=== PATIENT | female | born 1975 | race Two or more races ===

== ENCOUNTER → 2016-07-30 | Outpatient (CLI) | payer OTHER | LOC: WI 10:07 | PROVIDERS: ATTEND Family Medicine | DX: N64.4 Mastodynia (principal) | CPT/HCPCS: 76641; G0204; 77066 ==

== ENCOUNTER 2016-08-06 08:23 | Outpatient (CLI) | payer OTHER ==
[~2016-08-06 08:23] MED LIST: ACETAMINOPHEN 325 MG TABLET PO PRN; DIPHENHYDRAMINE HCL 50 MG/ML VIAL IV PRN; IRON DEXTRAN COMPLEX 25 MG in SYRINGE, DISPOSABLE, 1 EACH IV PRN; IRON DEXTRAN COMPLEX 775 MG in NORMAL SALINE 500 ML IV PRN; NORMAL SALINE 250 ML IV PRN
[2016-08-06 09:01] VITALS: BP 112/54
== END 2016-08-06 13:01 | disposition home or self-care (01) ==
LOC: 5TH 08:23 → II 08:23
PROVIDERS: ATTEND Specialist
PROC: 3E033GC Introduction of Other Therapeutic Substance into Peripheral Vein, Percutaneous Approach (ICD-10-PCS; principal; 2016-08-06)
PROC: 3E033GC Introduction of Other Therapeutic Substance into Peripheral Vein, Percutaneous Approach (ICD-10-PCS; 2016-08-06)
PROC: 3E033GC Introduction of Other Therapeutic Substance into Peripheral Vein, Percutaneous Approach (ICD-10-PCS; 2016-08-06)
PROC: 3E033GC Introduction of Other Therapeutic Substance into Peripheral Vein, Percutaneous Approach (ICD-10-PCS; 2016-08-06)
DX: D50.0 Iron deficiency anemia secondary to blood loss (chronic) (principal)
CPT/HCPCS: 96365; 96366; 96375; J1200; J1750; J7040; J3490; 96367

== ENCOUNTER 2017-07-23 13:08 | Outpatient (CLI) | payer OTHER ==
[~2017-07-23 13:08] MED LIST changes: +FERRIC CARBOXYMALTOSE 750 MG in NORMAL SALINE 250 ML IV PRN; +IRON DEXTRAN COMPLEX 25 MG in NORMAL SALINE 100 ML IV PRN
[2017-07-23 13:22] VITALS: BP 116/57
== END 2017-07-23 14:31 | disposition home or self-care (01) ==
LOC: II 13:08 → 5TH 13:13 → II 14:31
PROVIDERS: ATTEND Internal Medicine Hematology & Oncology
PROC: 3E033GC Introduction of Other Therapeutic Substance into Peripheral Vein, Percutaneous Approach (ICD-10-PCS; principal; 2017-07-23)
DX: D50.0 Iron deficiency anemia secondary to blood loss (chronic) (principal); K90.9 Intestinal malabsorption, unspecified
CPT/HCPCS: 96367; J7050; J1439; 96365; J1750; J3490; J7040

== ENCOUNTER 2017-07-30 13:10 | Outpatient (CLI) | payer OTHER ==
[~2017-07-30 13:10] MED LIST changes: -ACETAMINOPHEN 325 MG TABLET PO PRN; -DIPHENHYDRAMINE HCL 50 MG/ML VIAL IV PRN; -IRON DEXTRAN COMPLEX 25 MG in NORMAL SALINE 100 ML IV PRN; -IRON DEXTRAN COMPLEX 25 MG in SYRINGE, DISPOSABLE, 1 EACH IV PRN; -IRON DEXTRAN COMPLEX 775 MG in NORMAL SALINE 500 ML IV PRN
[2017-07-30 13:47] VITALS: BP 122/68
== END 2017-07-30 14:45 | disposition home or self-care (01) ==
LOC: II 13:10 → 5TH 13:32 → II 14:45
PROVIDERS: ATTEND Internal Medicine Hematology & Oncology
PROC: 3E033GC Introduction of Other Therapeutic Substance into Peripheral Vein, Percutaneous Approach (ICD-10-PCS; principal; 2017-07-30)
DX: D50.0 Iron deficiency anemia secondary to blood loss (chronic) (principal); K90.9 Intestinal malabsorption, unspecified
CPT/HCPCS: 96367; J7050; J1439; 96365

== ENCOUNTER → 2017-08-25 | Outpatient (CLI) | payer OTHER ==
--- NOTE | 2017-08-25 14:49 | WOMENS IMAGING REPORT ---
EXAM DESCRIPTION: 3D SCREENING MAMMO BILAT COMPLETED DATE/TIME: 08/25/2017 12:55 pm REASON FOR STUDY: ROUTINE SCREENING;Z12.31 Z12.31 ENCNTR SCREEN MAMMOGRAM FOR MALIGNANT NEOPLASM OF BRANDI COMPARISON: 2017 TECHNIQUE: Standard craniocaudal and mediolateral oblique views of each breast recorded using digita l acquisition and breast tomosynthesis. LIMITATIONS: None. FINDINGS: Findings present which are benign by mammographic criteria. No suspicious masses, calcifi cations or architectural distortion. Pertinent benign findings: Breast reduction. Read with the assistance of CAD. .[employer] - R2 Cenova Version 1.3 .[facility] - R2 Cenova Version 1.3 .[facility] - R2 Cenova Version 2.4 .[facility] [place] - R2 Cenova Version 2.4 .[facility] - R2 D[employer] Medical Equipment Technician Version 9.2 Benign mammographic findings may include one or more of the following: Smooth masses, popcorn/rim/co arse calcifications, asymmetries, post-procedure changes, and lesions with long-standing stability. IMPRESSION: BENIGN MAMMOGRAPHIC FINDINGS. BIRADS 2 BREAST DENSITY: b. There are scattered areas of fibroglandular density. BIRAD: 2 BENIGN FINDING(S) RECOMMENDATION: RECOMMENDATION: ROUTINE SCREENING COMMENT: The patient has been notified of the results by letter per SA requirements. Additional no tification policies are in place for contacting patient with suspicious or incomplete findings. Quality ID #225: The [employer] recommends an annual screening mammogram for women aged 40 years or over. This facility utilizes a reminder system to ensure that all patients receive reminder letters, and/or direct phone calls for appointments. This includes reminders for routine scr eening mammograms, diagnostic mammograms, or other Breast Imaging Interventions when appropriate. Th is patient will be placed in the appropriate reminder system. The [employer] (ACR) has developed recommendations for screening MRI of the breast s in certain patient populations, to be used in conjunction with mammography. Breast MRI surveillanc e may be appropriate for women with more than 20% lifetime risk of developing breast cancer as deter mined by genetic testing, significant family history of the disease, or history of mantle radiation f or Hodgkins Disease. ACR Practice Guidelines 2008. DBT Technology DBT is a type of tomographic mammography. With conventional mammography, overlapping breast tissue ma y make lesions difficult to detect, even with good compression. DBT uses an x-ray tube that rotates a round the breast, taking images at different angles. These images are then combined to create thin sl ices of the breast that the radiologist can view as a 3D reconstruction. The Hologic unit can perform full-field digital mammograms (2D imaging); or DBT (3D imaging); or both, in a combination mode that quickly performs both the mammogram and the tomosynthesis scan while the breast is still compressed. PQRS 6045F: Fluoroscopic imaging is not utilized for breast tomosynthesis. TECHNICAL DOCUMENTATION: FINDING NUMBER: (1) ASSESSMENT: (1) JOB ID: [id number] [employer]- All Rights Reserved Reading location - IP/workstation name: [email or web address] [email or web address]
== END ==
LOC: WI 12:33
PROVIDERS: ATTEND Physician Assistant
DX: Z12.31 Encounter for screening mammogram for malignant neoplasm of breast (principal)
CPT/HCPCS: 77063; 77067

== ENCOUNTER 2018-02-11 10:27 | Outpatient (CLI) | payer OTHER ==
[2018-02-11 11:04] VITALS: BP 113/63
== END 2018-02-11 11:34 | disposition home or self-care (01) ==
LOC: II 10:27 → 5TH 10:28 → II 11:34
PROVIDERS: ATTEND Internal Medicine Hematology & Oncology
PROC: 3E033GC Introduction of Other Therapeutic Substance into Peripheral Vein, Percutaneous Approach (ICD-10-PCS; principal; 2018-02-11)
DX: D50.0 Iron deficiency anemia secondary to blood loss (chronic) (principal); K90.9 Intestinal malabsorption, unspecified
CPT/HCPCS: 96365; J7050; J1439; 96367

== ENCOUNTER 2018-02-18 10:37 | Outpatient (CLI) | payer OTHER ==
[2018-02-18 11:22] VITALS: BP 112/77
== END 2018-02-18 11:53 | disposition home or self-care (01) ==
LOC: II 10:37 → 5TH 10:40 → II 11:53
PROVIDERS: ATTEND Internal Medicine Hematology & Oncology
PROC: 3E033GC Introduction of Other Therapeutic Substance into Peripheral Vein, Percutaneous Approach (ICD-10-PCS; principal; 2018-02-18)
DX: D50.0 Iron deficiency anemia secondary to blood loss (chronic) (principal); K90.9 Intestinal malabsorption, unspecified
CPT/HCPCS: 96367; J7050; J1439; 96365

== ENCOUNTER → 2019-04-05 | Outpatient (CLI) | payer OTHER ==
--- NOTE | 2019-04-06 18:03 | WOMENS IMAGING REPORT ---
EXAM DESCRIPTION: BILAT SCREENING MAMMO W/CAD COMPLETED DATE/TIME: 04/05/2019 3:37 pm REASON FOR STUDY: Z12.31 ENCOUNTER FOR SCREENING MAMMOGRAM FOR MALIGNANT NEOPLASM OF BREAST Z12.31 ENCNTR SCREEN MAMMOGRAM FOR MALIGNANT NEOPLASM OF BRANDI COMPARISON: 2017, 2016 EXAM PARAMETERS: Standard craniocaudal and mediolateral oblique views of each breast recorded using digital acquisition. Read with the assistance of CAD. [facility] - Neu[employer] Server Version 9.2 LIMITATIONS: None. FINDINGS: Findings present which are benign by mammographic criteria. No suspicious masses, calcifi cations or architectural distortion. Pertinent benign findings: Postsurgical changes of bilateral breast reduction. Benign mammographic findings may include one or more of the following: Smooth masses, popcorn/rim/co arse calcifications, asymmetries, post-procedure changes, and lesions with long-standing stability. IMPRESSION: BENIGN MAMMOGRAPHIC FINDINGS. BIRADS 2 BREAST DENSITY: c. The breasts are heterogeneously dense, which may obscure small masses. BIRAD: ASSESSMENT: 2 BENIGN FINDING(S) RECOMMENDATION: ROUTINE SCREENING Please continue yearly bilateral screening mammography/tomosynthesis in April 2020 COMMENT: The patient has been notified of the results by letter per MQSA requirements. Additional no tification policies are in place for contacting patient with suspicious or incomplete findings. Quality ID #225: The [employer] recommends an annual screening mammogram for women aged 40 years or over. This facility utilizes a reminder system to ensure that all patients receive reminder letters, and/or direct phone calls for appointments. This includes reminders for routine scr eening mammograms, diagnostic mammograms, or other Breast Imaging Interventions when appropriate. Th is patient will be placed in the appropriate reminder system. TECHNICAL DOCUMENTATION: FINDING NUMBER: (1) ASSESSMENT: (1) JOB ID: [id number] [employer]- All Rights Reserved Reading location - IP/workstation name: [email or web address]
== END ==
LOC: WI 14:38
PROVIDERS: ATTEND Obstetrics & Gynecology
DX: Z12.31 Encounter for screening mammogram for malignant neoplasm of breast (principal)
CPT/HCPCS: 77067

== ENCOUNTER 2019-04-21 13:01 | Outpatient (CLI) | payer OTHER ==
[~2019-04-21 13:01] MED LIST changes: -FERRIC CARBOXYMALTOSE 750 MG in NORMAL SALINE 250 ML IV PRN; +FERUMOXYTOL (NON-ESRD) 510 MG/NS 100 ML IV PRN
[2019-04-21 13:34] VITALS: BP 110/59
== END 2019-04-21 14:10 | disposition home or self-care (01) ==
LOC: II 13:01 → 5TH 13:29 → II 14:10
PROVIDERS: ATTEND Internal Medicine Hematology & Oncology
DX: D50.9 Iron deficiency anemia, unspecified (principal); K90.9 Intestinal malabsorption, unspecified
CPT/HCPCS: 96365; Q0138; J7050

== ENCOUNTER 2019-05-06 10:31 | Outpatient (CLI) | payer OTHER ==
[2019-05-06] MEDS ORDERED: NORMAL SALINE 250 ML IV PRN (10:35)
[2019-05-06] MEDS ORDERED: FERUMOXYTOL (NON-ESRD) 510 MG/NS 100 ML IV PRN ×2 (10:36)
[2019-05-06 10:39] VITALS: BP 129/74
== END 2019-05-06 11:45 | disposition home or self-care (01) ==
LOC: 5TH 10:31 → II 10:31
PROVIDERS: ATTEND Internal Medicine
DX: D50.9 Iron deficiency anemia, unspecified (principal); K90.9 Intestinal malabsorption, unspecified
CPT/HCPCS: 96365; Q0138; J7050

== ENCOUNTER 2019-07-14 08:26 | Day surgery (SDC) | payer OTHER ==
[2019-07-05 09:48] LABS: HEMATOCRIT 31.1 % (36.0-47.0); HEMOGLOBIN 10.4 g/dL (12.0-15.5); MEAN CORPUSCULAR HEMOGLOBIN 24.9 pg (27.0-33.4); MEAN CORPUSCULAR HGB CONC 33.3 g/dL (32.0-36.0); MEAN CORPUSCULAR VOLUME 75 fl (80-97); PLATELET COUNT 267 10^3/uL (150-450); RED BLOOD COUNT 4.17 10^6/uL (3.72-5.28); RED CELL DISTRIBUTION WIDTH 19.2 % (11.5-14.0); WHITE BLOOD COUNT 6.7 10^3/uL (4.0-10.5)
[2019-07-05 09:52] LABS: APPEARANCE,URINE SLIGHTLY-CLOUDY; BILIRUBIN,URINE NEGATIVE (NEGATIVE); COLOR,URINE YELLOW; GLUCOSE, URINE NEGATIVE (NEGATIVE); KETONES,URINE NEGATIVE (NEGATIVE); LEUKOCYTE ESTERASE,URINE SMALL (NEGATIVE); NITRITE,URINE NEGATIVE (NEGATIVE); PROTEIN,URINE NEGATIVE (NEGATIVE); URINE SPECIFIC GRAVITY 1.027; UROBILINOGEN,URINE NEGATIVE mg/dL (<2.0)
[2019-07-05 10:33] LABS: ALBUMIN 4.4 g/dL (3.5-5.0); ALKALINE PHOSPHATASE 56 U/L (38-126); ANION GAP 14 (5-19); ASPARTATE AMINO TRANSFERASE 29 U/L (14-36); BILIRUBIN,DIRECT 0.3 mg/dL (0.0-0.4); BILIRUBIN,TOTAL 0.7 mg/dL (0.2-1.3); BLOOD UREA NITROGEN 17 mg/dL (7-20); CALCIUM 8.9 mg/dL (8.4-10.2); CARBON DIOXIDE 22 mmol/L (22-30); CHLORIDE 105 mmol/L (98-107); GLUCOSE 115 mg/dL (75-110); POTASSIUM 4.6 mmol/L (3.6-5.0); TOTAL PROTEIN 7.8 g/dL (6.3-8.2)
--- NOTE | 2019-07-05 12:11 | RADIOLOGY REPORT (SQ) ---
EXAM DESCRIPTION: CHEST PA/LATERAL COMPLETED DATE/TIME: 07/05/2019 9:59 am REASON FOR STUDY: PRE-OP N92.6 IRREGULAR MENSTRUATION, UNSPECIFIED R32 UNSPECIFIED URINARY INCONTI NENCE N85.2 HYPERTROPHY OF UTERUS COMPARISON: None. NUMBER OF VIEWS: Two view. TECHNIQUE: Frontal and lateral radiographic views of the chest acquired. LIMITATIONS: None. FINDINGS: LUNGS AND PLEURA: Low lung volumes. No opacities, masses or pneumothorax. No pleural eff usion. MEDIASTINUM AND HILAR STRUCTURES: No masses. No contour abnormalities. HEART AND VASCULAR STRUCTURES: Heart normal in size and contour. No evidence for failure. BONES: No acute findings. HARDWARE: None in the chest. OTHER: No other significant finding. IMPRESSION: LOW LUNG VOLUMES. NO SIGNIFICANT RADIOGRAPHIC FINDING IN THE CHEST. TECHNICAL DOCUMENTATION: JOB ID: [id number] 2010 [email or web address]- All Rights Reserved Reading location - IP/workstation name: [email or web address]
--- NOTE | 2019-07-05 12:26 | EKG REPORT ---
SEVERITY:- ABNORMAL ECG - SINUS RHYTHM LOW VOLTAGE ANTERIOR PRECORDIAL LEADS ? ETIOLOGY, CANNOT R/O OLD ANTEROSEPTAL AL.. : Confirmed by: Chris Vogel MD 05-Jul-2019 12:25:50
[~2019-07-14 08:26] MED LIST changes: +CEFAZOLIN 1 GM/D5W RTU 1 GM/50 ML RTUPB IV PRN; +DEXAMETHASONE SOD PHOSPHATE INJ 4 MG/1 ML VIAL ONE; +FENTANYL CITRATE INJ/PF 100 MCG/2 ML AMPUL ONE; -FERUMOXYTOL (NON-ESRD) 510 MG/NS 100 ML IV PRN; +HYDROMORPHONE HCL INJ/PF 2 MG/ML AMPULE ONE; +LACTATED RINGERS 1000 ML IV PRN; +LIDOCAINE 0.5% INJ-PF (5 MG/ML) 50 ML SDV SUBCUT PRN; +MIDAZOLAM 2 MG/2 ML INJ ONE; -NORMAL SALINE 250 ML IV PRN; +ONDANSETRON HCL INJ/PF 4 MG/2 ML SDV ONE; +PROMETHAZINE HCL INJ 25 MG/1 ML VIAL ONE; +PROPOFOL INJ 200 MG/20 ML VIAL IV ONE; +ROCURONIUM BROMIDE INJ 50 MG/5 ML VIAL IV ONE; +SUCCINYLCHOLINE CHLORIDE INJ 200 MG/10 ML VIAL ONE
[2019-07-14] MEDS ORDERED: CEFAZOLIN 1 GM/D5W RTU 1 GM/50 ML RTUPB IV ONE (08:43)
[2019-07-14] MEDS ORDERED: DIPHENHYDRAMINE HCL 50 MG/ML VIAL IV PRN (10:42)
[2019-07-14] MEDS ORDERED: MORPHINE SULFATE 10 MG/ML INJ IV PRN ×2 (10:42→14:03)
[2019-07-14] MEDS ORDERED: FENTANYL CITRATE INJ/PF 100 MCG/2 ML AMPUL IV PRN ×3 (10:42)
[2019-07-14] MEDS ORDERED: ONDANSETRON HCL INJ/PF 4 MG/2 ML SDV IV PRN (10:42)
[2019-07-14] MEDS ORDERED: PROMETHAZINE HCL INJ 25 MG/1 ML VIAL IV PRN ×2 (10:42→14:03)
[2019-07-14] MEDS ORDERED: MEPERIDINE HCL/PF INJ 25 MG/1 ML DISP.SYRIN IV PRN (10:42)
[2019-07-14] MEDS ORDERED: ACETAMINOPHEN 325 MG TABLET PO PRN (14:03)
[2019-07-14] MEDS ORDERED: ACETAMINOPHEN 1,000 MG/100 ML RTUPB IV PRN (14:03)
[2019-07-14] MEDS ORDERED: OXYCODONE-ACETAMINOPHEN 5-325 MG TABLET PO PRN (14:03)
[2019-07-14] MEDS ORDERED: SIMETHICONE 80 MG TAB.CHEW PO PRN (14:03)
--- NOTE | 2019-07-14 14:18 | Operative Report ---
Operative Report DATE OF SURGERY: 07/14/19 PREOPERATIVE DIAGNOSIS: symptomatic uterine fibroids, anemia of chronic blood l oss, abnormal uterine bleeding, pelvic pain, history of endometriosis POSTOPERATIVE DIAGNOSIS: same OPERATION: Robotic assisted total laparoscopic hysterectomy with bilateral salpingectomy and repair of incidental cystotomy, lysis of adhesions SURGEON: MELANIE MEYERS 1ST RETAIL PRESENTATION SPECIALIST: RADHA MARISCAL 2ND Propeller Layout Worker: YUDY TOBAR ANESTHESIA: GA TISSUE REMOVED OR ALTERED: Uterus cervix multiple fibroids, left fallopian tube COMPLICATIONS: Incidental cystotomy repaired intraoperatively ESTIMATED BLOOD LOSS: 300 cc INTRAOPERATIVE FINDINGS: Multiple fibroids uterus sounded to approximately 12 cm right fallopian tube was surgically absent, both ovaries were normal in appearance several adhesions of the omentum to the anterior aspect of the uterus PROCEDURE: Patient was taken to the operating room prepared and draped in normal sterile fashion in dorsolithotomy position. Under sterile conditions a Joseph catheter was placed to gravity. Speculum was placed into the vagina and the cervix was grasped on the anterior lip with a single-tooth tenaculum. The cervix was then dilated to accommodate a medium V care uterine manipulator. Manipulator was placed gloves were changed and attention was turned to the upper portion of the case. A 2-1/2 cm umbilical skin incision was made 11 blade and this was carried through to the underlying layer of fascia with the same 11 blade. It was grasped to Patric'anthony transected with Cody's. Peritoneal cavity was entered bluntly. A GelPort was placed in a normal fashion, a morcellator bag was placed in the right paracolic gutter. the camera port and air seal placed in the appropriate locations. Peritoneal cavity was then inflated with approximately 2 L of CO2 gas. The camera was then introduced into the peritoneal cavity through the camera port and the patient was placed in steep Trendelenburg. The above findings were noted. Under direct visualization two 5 mm ports were placed approximately 10 cm on either side of the umbilicus. The robot was then docked with the vessel sealer placed on the patient's left and the monopolar scissors placed placed on the patient's right. I then unscrubbed and set at the robotic console beginning with the left adnexa fallopian tube was transected from the uterus using the vessel sealer and monopolar scissors as needed. The fallopian tube was then removed through the assistance port. The adhesions of the anterior aspect of the uterus were then transected using the vessel sealer and monopolar scissors as needed. the uteroovarian ligament was then transected using the vessel sealer. The uterine artery was skeletonized using blunt dissection and ligated using the vessel sealer down to the level of the external cervical os. The bladder flap was then begun using monopolar scissors and blunt dissection over the V care cup noted through the mucosa. Attention was then turned to the right adnexa where the fallopian tube was transected in a similar fashion. The utero-ovarian ligament was transected using the vessel sealer. The Uterine artery was then transected using the vessel sealer and skeletonized using blunt dissection. The vessel sealer was again used to completely transect the uterine artery down to the level of the external cervical os. The bladder flap was completed using similar sharp and blunt dissection. Once the bladder was felt to be adequately away from the lower uterine segment, the colpotomy was begun on the anterior aspect of the cervix following the outline of the V care cup mucosa. The cup was followed in a circumferential fashion completely around the cervix estimate was completely freed. The specimen was then placed in the right paracolic gutter with the morcellator bag. Time it was noted that there was a cystotomy in the bladder. the instruments were then changed to a Domenic needle tow car driver and pro-grasp. AV lock needle was introduced through the assistance port. The V lock needle was used to close the vaginal cuff good hemostasis. The needle was then removed through the assistance port. A 2-0 Vicryl was then cut to approximately 8 cm and introduced through the assistance port . This was used to repair the bladder in a running fashion . Irrigating stitch was used to ensure hemostasis . Then checked for water tightness and there was noted to be fluid leaking through the defect still . Consult with Dr. Mcbride who came and gave his input . Is putting in a third layer of suture with 2-0 Vicryl . Once this third layer was prepped was in place we again tested for water tightness and found the bladder to be to be good . More leakage was noted of sterile water into the peritoneal cavity . the peritoneal cavity was carefully inspected the ureters were noted to both be peristalsing and there was no signs of hydroureter. The specimen was then located and placed it within the morcellation bag once the morcellation bag had been opened . the robot was then undocked. The morcellation gómez bag edges were then brought up through the umbilical incision . The uterine specimen was then morcellated within the bag using a C cut make until it was completely freed from the peritoneal cavity . Specimen was then passed off . the fascia was closed at the umbilical skin incision with 0 Vicryl. The 3 skin incisions were closed using 4-0 Vicryl. Sponge lap and needle counts were correct x2 and the patient was taken to recovery in stable condition.
[2019-07-14] MEDS ORDERED: ACETAMINOPHEN 1,000 MG/100 ML RTUPB IV ONE (16:10)
[2019-07-14] MEDS: DOCUSATE SODIUM 100 MG CAPSULE PO SCH (17:07)
[2019-07-14] MEDS: KETOROLAC TROMETHAMINE INJ/PF 30 MG/1 ML SDV IV SCH (18:38)
[2019-07-14] MEDS: TOPIRAMATE 100 MG TABLET PO SCH (22:44)
[2019-07-14] MEDS: OXYCODONE-ACETAMINOPHEN 5-325 MG TABLET PO PRN (22:44)
[2019-07-14] MEDS: RINGERS SOLUTION,LACTATED 1,000 ML IV PRN (22:46)
[2019-07-15] MEDS: KETOROLAC TROMETHAMINE INJ/PF 30 MG/1 ML SDV IV SCH ×2 (02:26→10:20)
[2019-07-15] MEDS: OXYCODONE-ACETAMINOPHEN 5-325 MG TABLET PO PRN (05:20)
[2019-07-15 07:25] LABS: HEMATOCRIT 16.4 % (36.0-47.0); MEAN CORPUSCULAR HEMOGLOBIN 24.4 pg (27.0-33.4); MEAN CORPUSCULAR HGB CONC 32.7 g/dL (32.0-36.0); MEAN CORPUSCULAR VOLUME 75 fl (80-97); PLATELET COUNT 231 10^3/uL (150-450); RED BLOOD COUNT 2.19 10^6/uL (3.72-5.28); WHITE BLOOD COUNT 6.4 10^3/uL (4.0-10.5)
[2019-07-15 07:43] LABS: HEMOGLOBIN 5.3 g/dL (12.0-15.5)
[2019-07-15] MEDS: RINGERS SOLUTION,LACTATED 1,000 ML IV PRN (07:55)
[2019-07-15] MEDS ORDERED: NORMAL SALINE 250 ML IV PRN ×2 (08:00)
[2019-07-15] MEDS ORDERED: IBUPROFEN 800 MG TABLET PO SCH (09:00)
[2019-07-15] MEDS: TOPIRAMATE 100 MG TABLET PO SCH ×2 (10:20→21:00)
[2019-07-15] MEDS: DOCUSATE SODIUM 100 MG CAPSULE PO SCH ×2 (10:20→17:15)
[2019-07-15] MEDS ORDERED: ACETAMINOPHEN 325 MG TABLET PO PRN (16:30)
[2019-07-15] MEDS ORDERED: FUROSEMIDE INJ/PF 20 MG/2 ML SDV IV PRN (16:30)
[2019-07-15] MEDS: IBUPROFEN 800 MG TABLET PO SCH ×2 (17:15→21:57)
[2019-07-16] MEDS: RINGERS SOLUTION,LACTATED 1,000 ML IV PRN (02:29)
[2019-07-16] MEDS: IBUPROFEN 800 MG TABLET PO SCH ×2 (02:34→08:35)
[2019-07-16 02:45] LABS: ABSOLUTE EOSINOPHILS # (AUTO) 0.3 10^3/uL (0.0-0.6); ABSOLUTE LYMPHOCYTES (AUTO) 1.3 10^3/uL (0.5-4.7); ABSOLUTE MONOCYTES (AUTO) 0.4 10^3/uL (0.1-1.4); ABSOLUTE NEUT (AUTO) 6.2 10^3/uL (1.7-8.2); BASOPHILS % (AUTO) 0.4 % (0-2); EOSINOPHILS % (AUTO) 3.3 % (0-6); HEMATOCRIT 29.3 % (36.0-47.0); LYMPHOCYTES % (AUTO) 15.6 % (13-45); MEAN CORPUSCULAR HEMOGLOBIN 26.7 pg (27.0-33.4); MONOCYTES % (AUTO) 4.7 % (3-13); PLATELET COUNT 237 10^3/uL (150-450); RED BLOOD COUNT 3.73 10^6/uL (3.72-5.28); RED CELL DISTRIBUTION WIDTH 16.7 % (11.5-14.0); TOTAL CELLS COUNTED % (AUTO) 100 %; WHITE BLOOD COUNT 8.2 10^3/uL (4.0-10.5)
[2019-07-16 02:47] LABS: MEAN CORPUSCULAR VOLUME 79 fl (80-97)
--- NOTE | 2019-07-16 08:24 | PDOC DISCHARGE SUMMARY ---
Impression - Admit/DC Date/PCP Admission Date/Primary Care Provider: MELISSA GUDINO PA-C Discharge Date: 07/16/19 - Discharge Diagnosis (1) Anemia due to chronic blood loss Is this a current diagnosis for this admission?: Yes (2) Leiomyoma Is this a current diagnosis for this admission?: Yes (3) Abnormal uterine and vaginal bleeding, unspecified Is this a current diagnosis for this admission?: Yes (4) Pelvic pain Is this a current diagnosis for this admission?: Yes (5) Endometriosis Is this a current diagnosis for this admission?: Yes - Assessment Summary: this patient with longstanding chronic anemia presented for a RATLH w/ Bilateral salpingectomy, lysis of adhesions and had repair of an incidental cystotomy that occurred during her surgery. Post operatively her hemoglobin dropped to 5.3 (likely related to her having started her menses again 2 days prior to surgery as well as blood loss during surgery). I transfused her 3 units of PRBCs and her hemoglobin responded nicely. Her urine output has been adequate and her horner is draining clear urine at this time. She and her have been instructed that she will need to keep the horner for bladder rest for 2 week and we will remove in the office at that time. Possible need for urology follow up has been discussed but likely this will not be necessary as most cystotomy's do heal up well with bladder rest. She is doing well and is ready for discharge home at this time. - Additional Information Resuscitation Status: Full Code Discharge Diet: As Tolerated Discharge Activity: Balance Activity w/Rest, Pelvic Rest Referrals: MELANIE MEYERS MD [ACTIVE STAFF] - 07/29/19 10:00 am (Please keep your follow up appointment with Dr Meyers on 07/29/19 at 10:00. If you have any questions pleasecallthe office directly at .) Prescriptions: Oxycodone HCl/Acetaminophen [Percocet 5-325 mg Tablet] 1 tab PO Q4HP PRN #30 tablet PRN Reason: Ibuprofen [Motrin 800 mg Tablet] 800 mg PO Q6A #60 tablet Home Medications: Topiramate [Topamax] 200 mg PO BID 07/04/19 Ibuprofen [Motrin 800 mg Tablet] 800 mg PO Q6A #60 tablet 07/16/19 Oxycodone HCl/Acetaminophen [Percocet 5-325 mg Tablet] 1 tab PO Q4HP PRN #30 tablet 07/16/19 History of Present Illiness History of Present Illness: MARTIN BUSH is a 43 year old female Physical Exam - Physical Exam Vital Signs: Temp Pulse Resp BP Pulse Ox 98.1 F 73 16 117/60 97 07/16/19 04:28 07/16/19 04:28 07/16/19 04:28 07/16/19 04:28 07/16/19 04:28 Intake & Output 07/15/19 07/16/19 07/17/19 06:59 06:59 06:59 Intake Total 5250 2850 Output Total 3200 4650 Balance 2050 -1800 Weight 100.7 kg 100.8 kg Results Laboratory Results: WBC 8.2 10^3/uL (4.0-10.5) 07/16/19 02:28 RBC 3.73 10^6/uL (3.72-5.28) 07/16/19 02:28 Hgb 10.0 g/dL (12.0-15.5) L D 07/16/19 02:28 Hct 29.3 % (36.0-47.0) L 07/16/19 02:28 MCV 79 fl (80-97) L D 07/16/19 02:28 MCH 26.7 pg (27.0-33.4) L 07/16/19 02:28 MCHC 34.0 g/dL (32.0-36.0) 07/16/19 02:28 RDW 16.7 % (11.5-14.0) H 07/16/19 02:28 Plt Count 237 10^3/uL (150-450) 07/16/19 02:28 Lymph % (Auto) 15.6 % (13-45) 07/16/19 02:28 Howell % (Auto) 4.7 % (3-13) 07/16/19 02:28 Eos % (Auto) 3.3 % (0-6) 07/16/19 02:28 Baso % (Auto) 0.4 % (0-2) 07/16/19 02:28 Absolute Neuts (auto) 6.2 10^3/uL (1.7-8.2) 07/16/19 02:28 Absolute Lymphs (auto) 1.3 10^3/uL (0.5-4.7) 07/16/19 02:28 Absolute Monos (auto) 0.4 10^3/uL (0.1-1.4) 07/16/19 02:28 Absolute Eos (auto) 0.3 10^3/uL (0.0-0.6) 07/16/19 02:28 Absolute Basos (auto) 0.0 10^3/uL (0.0-0.2) 07/16/19 02:28 Seg Neutrophils % 76.0 % (42-78) 07/16/19 02:28 Sodium 141.0 mmol/L (137-145) 07/05/19 09:17 Potassium 4.6 mmol/L (3.6-5.0) 07/05/19 09:17 Chloride 105 mmol/L (98-107) 07/05/19 09:17 Carbon Dioxide 22 mmol/L (22-30) 07/05/19 09:17 Anion Gap 14 (5-19) 07/05/19 09:17 BUN 17 mg/dL (7-20) 07/05/19 09:17 Creatinine 0.54 mg/dL (0.52-1.25) 07/05/19 09:17 Est GFR ( Amer) > 60 (>60) 07/05/19 09:17 Est GFR (MDRD) Non-Af > 60 (>60) 07/05/19 09:17 Glucose 115 mg/dL (75-110) H 07/05/19 09:17 Calcium 8.9 mg/dL (8.4-10.2) 07/05/19 09:17 Total Bilirubin 0.7 mg/dL (0.2-1.3) 07/05/19 09:17 Direct Bilirubin 0.3 mg/dL (0.0-0.4) 07/05/19 09:17 Neonat Total Bilirubin Not Reportable 07/05/19 09:17 Neonat Direct Bilirubin Not Reportable 07/05/19 09:17 Neonat Indirect Bili Not Reportable 07/05/19 09:17 AST 29 U/L (14-36) 07/05/19 09:17 ALT 33 U/L (<35) 07/05/19 09:17 Alkaline Phosphatase 56 U/L (38-126) 07/05/19 09:17 Total Protein 7.8 g/dL (6.3-8.2) 07/05/19 09:17 Albumin 4.4 g/dL (3.5-5.0) 07/05/19 09:17 Urine Color YELLOW 07/05/19 09:17 Urine Appearance SLIGHTLY-CLOUDY 07/05/19 09:17 Urine pH 5.0 (5.0-9.0) 07/05/19 09:17 Ur Specific [place] 1.027 07/05/19 09:17 Urine Protein NEGATIVE mg/dL (NEGATIVE) 07/05/19 09:17 Urine Glucose (UA) NEGATIVE mg/dL (NEGATIVE) 07/05/19 09:17 Urine Ketones NEGATIVE mg/dL (NEGATIVE) 07/05/19 09:17 Urine Blood SMALL (NEGATIVE) H 07/05/19 09:17 Urine Nitrite NEGATIVE (NEGATIVE) 07/05/19 09:17 Urine Bilirubin NEGATIVE (NEGATIVE) 07/05/19 09:17 Urine Urobilinogen NEGATIVE mg/dL (<2.0) 07/05/19 09:17 Ur Leukocyte Esterase SMALL (NEGATIVE) H 07/05/19 09:17 Urine WBC (Auto) 10 /HPF 07/05/19 09:17 Urine RBC (Auto) 2 /HPF 07/05/19 09:17 Urine Bacteria (Auto) TRACE /HPF 07/05/19 09:17 Squamous Epi Cells Auto 5 /HPF 07/05/19 09:17 Urine Mucus (Auto) OCC /LPF 07/05/19 09:17 Urine Ascorbic Acid NEGATIVE (NEGATIVE) 07/05/19 09:17 Urine HCG, Qual NEGATIVE (NEGATIVE) 07/14/19 08:30 Blood Type A POSITIVE 07/14/19 08:48 Blood Type Confirm A POSITIVE 07/15/19 09:17 Antibody Screen NEGATIVE 07/14/19 08:48 Crossmatch See Detail 07/14/19 08:48 Impressions: Chest X-Ray 07/05/19 09:51 IMPRESSION: LOW LUNG VOLUMES. NO SIGNIFICANT RADIOGRAPHIC FINDING IN THE CHEST. Stroke Is this a Stroke Patient?: No Acute Heart Failure - Is this a Heart Failure Patient?: No
[2019-07-16] MEDS: OXYCODONE-ACETAMINOPHEN 5-325 MG TABLET PO PRN (09:27)
[2019-07-16] MEDS: DOCUSATE SODIUM 100 MG CAPSULE PO SCH (09:28)
[2019-07-16] MEDS: TOPIRAMATE 100 MG TABLET PO SCH (09:29)
[2019-07-16 12:10] VITALS: BP 112/63
== END 2019-07-16 13:00 | disposition home or self-care (01) ==
LOC: OROUT 08:26 → 2N 15:35 → OROUT 07-16 13:00
PROVIDERS: ATTEND Obstetrics & Gynecology
DX: D25.1 Intramural leiomyoma of uterus (principal); D25.0 Submucous leiomyoma of uterus; D25.2 Subserosal leiomyoma of uterus; N83.8 Other noninflammatory disorders of ovary, fallopian tube and broad ligament; N80.0 Endometriosis of uterus; D50.0 Iron deficiency anemia secondary to blood loss (chronic); K66.0 Peritoneal adhesions (postprocedural) (postinfection); N99.72 Accidental puncture and laceration of a genitourinary system organ or structure during other procedure; T88.8XXA Other specified complications of surgical and medical care, not elsewhere classified, initial encounter; Y92.238 Other place in hospital as the place of occurrence of the external cause; N93.9 Abnormal uterine and vaginal bleeding, unspecified; Z79.899 Other long term (current) drug therapy; R06.02 Shortness of breath
CPT/HCPCS: 51865; 58571; S2900; 36415; 36430; 71046; 80053; 81001; 81025; 840; 85025; 85027; 86850; 86900; 86901; 86920; 88307; 93005; 93010; 94799; J0131; J0330; J0690; J1100; J1170; J1885; J1940; J2250; J2405; J2550; J2704; J3010; J3490; J7120; P9016